=== PATIENT | female | born 1955 | race Caucasian/White ===

== ENCOUNTER 2020-01-10 10:08 | Outpatient (CLI) | payer OTHER ==
[~2020-01-10 10:08] MED LIST: ACET-1600 PO; CYAN250013 PO; ENAL10TA71 PO; HYDR-3240 PO; NIFE60TA2 PO
== END 2020-01-10 23:59 | disposition home or self-care (01) ==
LOC: CFH 10:08
PROVIDERS: ATTEND Physician Assistant Medical
DX: M81.0 Age-related osteoporosis without current pathological fracture (principal); E04.2 Nontoxic multinodular goiter; G62.9 Polyneuropathy, unspecified; I10 Essential (primary) hypertension; E83.52 Hypercalcemia; N95.9 Unspecified menopausal and perimenopausal disorder; E05.80 Other thyrotoxicosis without thyrotoxic crisis or storm
CPT/HCPCS: 76536; 77080